=== PATIENT | female | born 1965 | race Caucasian/White ===

== ENCOUNTER 2021-04-17 09:56 | Emergency (ER) | payer MEDICAID ==
[~2021-04-17] VITALS: Ht 160 cm; Wt 59.1 kg
[2021-04-17 10:08] VITALS: BP 118/79
[2021-04-17] MEDS ORDERED: CHLO25CA10 PO (11:17)
== END 2021-04-17 11:52 | disposition home or self-care (01) ==
LOC: ER 09:56
DX: F10.220 Alcohol dependence with intoxication, uncomplicated (principal); Z00.01 Encounter for general adult medical examination with abnormal findings; Y90.9 Presence of alcohol in blood, level not specified
CPT/HCPCS: 99283